=== PATIENT | male | born 1960 | race Caucasian/White ===

== ENCOUNTER 2022-08-26 14:03 | Emergency (ER) | payer BC, SELFPAY ==
--- NOTE | 2022-08-26 14:07 | ED.SKABFB ---
HPI - Skin/Abscess/Foreign Bdy General Chief complaint: Skin/Abscess/Foreign Body Stated complaint: Skin Sore Time Seen by Provider: 08/26/22 14:07 Source: patient and RN notes reviewed History of Present Illness HPI narrative: Patient is a 62-year-old male who presents to urgent care with complaints of a sore to the top of the left hand. Patient states that his next Margarita with her fingernail approximately 2 weeks or so ago and it has never healed. Patient states he does have some scant drainage. States he has been using Neosporin and topical ointments. Denies any fevers, nausea or vomiting. Denies any history of staph infection but does have the concern. No other acute complaints. No acute distress noted. Patient aware of the plan of care. Some parts of this dictation were generated by voice recognition software and may contain typographical and/or grammatical inaccuracies. Related Data Allergies Allergy/AdvReac Type Severity Reaction Status Date / Time allopurinol Allergy Intermediate swelling Verified 11/13/19 09:00 of eyelids aspirin Allergy Intermediate Angioedem Verified 11/13/19 08:59 a indomethacin Allergy Intermediate swelling Verified 11/13/19 09:01 of tongue Review of Systems Review of Systems: CONSTITUTIONAL: Denies fever, chills, or sweats. EYES: Denies visual changes, redness, or discharge. ENT: Denies rhinorrhea, congestion, sore throat, or otalgia. CARDIOVASCULAR: Denies chest pain, palpitations, or edema. RESPIRATORY: Denies cough or dyspnea. GASTROINTESTINAL: Denies abdominal pain, nausea, vomiting, or diarrhea. GENITOURINARY: Denies dysuria or hematuria. SKIN: Reports of a nonhealing wound to the top of the left hand MUSCULOSKELETAL: Denies back pain, joint pain, or myalgia. NEUROLOGIC: Denies headache, numbness, or weakness. All other systems reviewed are negative, except as documented in HPI. [facility] Past Medical History Medical History (Updated 08/26/22 @ 14:27 by DARLING Lr) Acute bronchitis Allergic asthma BMI 31.0-31.9,adult Chronic kidney disease (CKD) stage G3a/A1, moderately decreased glomerular filtration rate (GFR) between 45-59 mL/min/1.73 square meter and albuminuria creatinine ratio less than 30 mg/g BUN 16, creatinine 1.49 with GFR 50 on 11/24/2021. BUN 16, creatinine 1.36, GFR 59 on 06/22/2022 Colon cancer screening Cologuard screening negative on 07/15/2020. Recheck in 3 years Encounter for wellness examination Gout right great toe starting at age 33. Uric acid 5.2 on 06/10/2020 . Uric acid 5.3 on 11/24/2021. uric acid 5.3 on 06/22/2022. Hyperlipidemia starting 2011. Total cholesterol 160, triglycerides 86, HDL 46, LDL 96 on 06/10/2020 . Total cholesterol 172, triglycerides 110, HDL 49, LDL 102 on 11/24/2021. Total cholesterol 177, HDL 43, triglycerides 125, LDL 110 on 06/22/2022. Hypothyroidism 2017. TSH 1.92 on 06/10/2020 . TSH 4.14 with free T4 1.4 on 11/24/2021. TSH 3.72, free T4 1.5 on 06/22/2022 Neoplasm of skin Obesity (BMI 30.0-34.9) Prostate cancer screening PSA 1.2 on 06/10/2020. PSA 1.54 on 11/24/2021. Rupture of biceps tendon, traumatic (~04/2021) Seasonal allergic rhinitis Family History Family History (Updated 06/18/19 @ 08:25 by Radha Ma MA) Mother Thyroid disease Hyperlipidemia Father COPD (chronic obstructive pulmonary disease) Grandparent Diabetes mellitus Grandparent Colon cancer Grandparent Autoimmune disease Grandparent Rheumatoid arthritis Sibling Hypertension Aortic aneurysm Social History Social History (Updated 06/24/22 @ 08:06 by Radha Ma MA) Smoking status: Never smoker Second hand tobacco smoke exposure: No Alcohol intake: current Drinks per week: 2 Alcohol use details: Scotch on the weekends only Substance use: never Substance use type: does not use Current Housing: Decline to Answer C
[2022-08-26 14:10] VITALS: BP 145/95; PULSE 64; RESP 16; TEMP 36.6; O2SAT 98
== END 2022-08-26 14:27 | disposition home or self-care (01) ==
PROVIDERS: Emergency Provider Nurse Practitioner Family; PCP Family Medicine
DX: L02.512 Cutaneous abscess of left hand (principal); N18.31 Chronic kidney disease, stage 3a; E78.5 Hyperlipidemia, unspecified
CPT/HCPCS: 99213; G0463

== ENCOUNTER → 2023-06-30 09:02 | Outpatient (CLI) | payer BC, SELFPAY ==
--- NOTE | ~2023-06-30 | XR_ITS ---
Clinical Indication: Secondary polycythemia PA and lateral views of the chest: Comparison: None Findings: The lungs are clear, without evidence of focal consolidation or pleural effusion. Cardiome diastinal silhouette is within normal limits. Bones and soft tissues are unremarkable. Impression: Normal chest. Reviewed, dictated and finalized at [facility]. [employer]EST[employer] Impression: Normal chest.
== END ==
PROVIDERS: PCP Family Medicine; Visit Provider Family Medicine
DX: D75.1 Secondary polycythemia (principal)
CPT/HCPCS: 71046

== ENCOUNTER 2023-07-27 08:14 | Outpatient (CLI) | payer BC, SELFPAY ==
--- NOTE | 2023-07-27 16:53 | WPDPFTINT ---
PFT Procedure Performed PFT Procedure Performed Spirometry with Pre/Post Bronchodilator Plethysmography (Lung Vol) Diffusing Cap (DLCO) Flow Vol Loop PFT Interpretation This is a pulmonary function test with pre and post-bronchodilator spirometry, plethysmography and diffusing capacity. The test was performed and results interpreted in accordance with the 2019 and 2005 ATS/ERS Task Force guidelines respectively using the Global Lung Function Initiative-2012 reference equations. Patient demonstrated good effort and cooperation. Reproducibility criteria were met. The quality of the pre bronchodilator spirometry maneuver was Grade A and post bronchodilator spirometry maneuver was Grade A. Findings: Spirometry: The contour the inspiratory and expiratory flow tracing are normal. The pre bronchodilator FVC is 4.53 L, 87% predicted. The pre bronchodilator FEV1 is 3.22 L, 82% predicted. The pre bronchodilator FEV1: FVC ratio is 71%. The post bronchodilator FVC is 4.63 L, representing a 2% increase. The post bronchodilator FEV1 is 3.46 L, representing a 7% increase. The post bronchodilator FEV1: FVC ratio is 75%. Plethysmography: The total lung capacity is 9.21 L, 118% predicted. Functional residual capacity is 4.38 L, 106% predicted. The residual volume is 3.56 L, 141% predicted. Diffusing capacity: The diffusing capacity unadjusted for hemoglobin and carboxyhemoglobin is 31.5, 107% predicted. The diffusing capacity adjusted for alveolar volume is 4.69, 119% predicted. Impression: The spirometry is normal without evidence of an obstructive abnormality. There is no significant improvement after inhaling a single dose of albuterol. The total lung capacity and functional residual capacity are normal with an increased residual volume. This is an abnormal but nonspecific lung volume pattern. The diffusing capacity is normal. There are no prior studies for comparison
== END 2023-07-27 08:15 | disposition home or self-care (01) ==
PROVIDERS: PCP Family Medicine; Visit Provider Family Medicine
DX: R91.8 Other nonspecific abnormal finding of lung field (principal); J45.909 Unspecified asthma, uncomplicated
CPT/HCPCS: 94060; 94726; 94729

== ENCOUNTER 2024-11-04 18:04 | Emergency (ER) | payer BC, SELFPAY ==
--- OUTSIDE RECORDS SUMMARY | 2024-11-04 18:06 | XMS_ITS | Clinical Summary ---
Author Organization [address] Address [address] [place] [address] Care Team Providers Care Design Lead Name Role Phone Castillo Newton MD Primary Care Provider [phone] Allergies Active Allergy Reactions Criticality Noted Date Comments Aspirin Swelling Medium 06/29/2021 Medications albuterol HFA (PROVENTIL HFA,VENTOLIN HFA,PROAIR HFA) 90 mcg/actuation inhaler INHALE 2 PUFFS BY MOUTH EVERY 4 HOURS NEEDED FOR SHORTNESS OF BREATH OR WHEEZING 1 Active atorvastatin (LIPITOR) 10 mg tablet Take 10 mg by mouth daily 1 Active celecoxib (CeleBREX) 200 mg capsule TAKE 1 CAPSULE BY MOUTH DAILY NEEDED FOR PAIN 1 Active febuxostat (ULORIC) 40 mg tablet Take 40 mg by mouth daily 1 Active fluticasone propionate (FLONASE) 50 mcg/actuation nasal spray SHAKE LIQUID AND USE 1 SPRAY IN EACH NOSTRIL TWICE DAILY 1 Active levothyroxine (SYNTHROID) 75 mcg tablet Take 75 mcg by mouth daily 1 Active Xiidra 5 % dropperette 1 Active Active Problems No known active problems Medical History Medical History Date Comments Hypercholesteremia Gout Family History Medical History Relation Name Comments Hypertension Mother Relation Name Status Comments Mother Social History Tobacco Use Types Packs/Day Years Used Date Smoking Tobacco: Never Smokeless Tobacco: Never Personal Safety Answer Date Recorded Getting School Help Needed Not on file 10/28 Sex and Gender Information Value Date Recorded Sex Assigned at Not on file Legal 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 Gender Identity Not on file Sexual Orientation Not on file Obstetrics History Last Filed Vital Signs Vital Sign Reading Time Taken Comments Blood Pressure 175/97 06/29/2021 12:01 PM STOCKROOM ASSOCIATE Pulse 59 06/29/2021 12:01 PM STOCKROOM ASSOCIATE Temperature - - Respiratory Rate - - Oxygen Saturation - - Inhaled Oxygen Concentration - - Weight 111.9 kg (246 lb 9.6 oz) 021 12:01 PM STOCKROOM ASSOCIATE Height 188 cm (6' 2 ) 06/29/2021 12:01 PM STOCKROOM ASSOCIATE Body Mass Index 31.66 06/29/2021 12:01 PM STOCKROOM ASSOCIATE Plan of Treatment Health Maintenance Due Date Last Done Comments Colon Cancer Screening-Colonoscopy 1959 Depression Screening 1959 Fall Risk Assessment 1959 Hepatitis C Screening 1959 Prostate Cancer Screening-PSA 1959 DTaP/Tdap/Td Vaccine (1 - Tdap) 1970 Hepatitis B Screening 1977 Pneumococcal vaccine 65+ (1 of 1 - PCV) 2009 Zoster Vaccine (2 of 2) 04/06/2021 02/09/2021 Covid-19 Vaccine (3 - season) 2024, 10/16/2020 Influenza Vaccine (#1) 2024 Abdominal Aortic Aneurysm (AAA) Screen 2024 Well Visit 65+ 2024 Insurance [facility] Care Teams Design Lead Relationship Specialty Start Date End Date Castillo Newton MD [address] [address] PCP - General Family Medicine 06/29/21
--- OUTSIDE RECORDS SUMMARY | 2024-11-04 18:06 | XMS_ITS | Continuity of Care Document ---
Author Organization [facility] Address [address] [place] [address] Phone Care Team Providers Care Electronic Equipment Installer Name Role Phone Briones OD, Mingo Unavailable Unavailable Advance Directives Directive Yes / No Effective Date File Name No Information Encounters Encounter Description Practice Location Reason(s) For Visit Diagnoses Date Provider Providers Copied on Encounter [facility], [address], [place], [place], [id number], [place] tel:[phone] [facility] No Information Jul- 1-199 9 Briones OD Mingo. [address] , [address], [place], [address], [place]. tel:[phone] Family History Family Member Type Diagnosis Age At Onset No Information Payers Payer name Insurance type Covered green party ID Authoriza tion(s) No Information Social History Type Description Quantity Date Captured Comments Sex Male Smoking Status No Information Chief Complaint And Reason For Visit No Information Reason For Referral Reason For Referral No Information History Of Present Illness Encounter Date Complaint History Of Prese nt Illness No Information Functional Status Date Functional Assessmen t No Information Instructions Date Instruction Additional Infor mation No Information Assessments Type Assessment Date No Information Patient Care Teams Name Effective Dates (start - stop) Status Members No Information
--- OUTSIDE RECORDS SUMMARY | 2024-11-04 18:06 | XMS_ITS | Referral Summary ---
Author Organization [address] Address [address] [place] [address] Care Team Providers Care Lockstitch Waistline Joiner Name Role Phone Castillo Newton MD Primary Care Provider [phone] Allergies Active Allergy Reactions Criticality Noted Date [...] Active Active Problems No known active problems Social History Tobacco Use Types Packs/Day Years Used Date Smoking Tobacco: Never Smokeless Tobacco: Never Personal Safety Answer Date Recorded Getting School Help Needed Not on file 10/28 Sex and Gender Information Value Date Recorded Sex Assigned at Not on file Legal Sex Male 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 Gender Identity Not on file Sexual Orientation Not on file Last Filed Vital Signs Vital Sign Reading Time Taken Comments Blood Pressure 175/97 06/29/2021 12:01 PM WOMEN'S GARMENT FITTER Pulse 59 06/29/2021 12:01 PM WOMEN'S GARMENT FITTER Temperature - - Respiratory Rate - - Oxygen Saturation - - Inhaled Oxygen Concentration - - Weight 111.9 kg (246 lb 9.6 oz) 021 12:01 PM WOMEN'S GARMENT FITTER Height 188 cm (6' 2 ) 06/29/2021 12:01 PM WOMEN'S GARMENT FITTER Body Mass Index 31.66 06/29/2021 12:01 PM WOMEN'S GARMENT FITTER Plan of Treatment Not on file Insurance [facility] Care Teams Lockstitch Waistline Joiner Relationship Specialty Start Date End Date Castillo Newton MD [address] [address] PCP - General Family Medicine 06/29/21
[2024-11-04 18:08] VITALS: BP 150/82; PULSE 90; RESP 20; TEMP 37.1; O2SAT 96
--- OUTSIDE RECORDS SUMMARY | 2024-11-04 18:08 | XMS_ITS | Continuity of Care Document ---
Author Organization [facility] Address [address] [place] [address] Phone Care Team Providers Care Narrow Gauge Engineer Name Role Phone Briones OD, Mingo Unavailable Unavailable Advance Directives Directive Yes / No Effective Date File Name No Information Encounters Encounter Description Practice Location Reason(s) For Visit Diagnoses Date Provider Providers Copied on Encounter [facility], [address], [place], [place], [id number], [place] tel:[phone] [facility] No Information Jul- 1-199 9 Briones OD Mingo. [address] , [address], [place], [address], [place]. tel:[phone] Family History Family Member Type Diagnosis Age At Onset No Information Payers Payer name Insurance type Covered libertarian ID Authoriza tion(s) No Information Social History [...]
--- NOTE | 2024-11-04 18:34 | ED_ITS ---
HPI - General Adult General Chief complaint: Upper Respiratory Infection Stated complaint: fever/congestion Source: patient Mode of arrival: ambulatory Limitations: no limitations History of Present Illness HPI narrative: Patient presents for evaluation of sick symptoms for last 3 days. Symptoms include fever, cough, nausea, body aches, wheezing and mild SOB. He denies any chills, vomiting, diarrhea. He has been taking Mucinex DM and Tylenol for symptoms. He does not smoke. He states several individuals at work have recently been sick with influenza and pneumonia. He has also been using an inhaler which seems to help. Related Data Allergies Allergy/AdvReac Type Severity Reaction Status Date / Time allopurinol Allergy Intermediate swelling Verified 11/04/24 18:17 of eyelids aspirin Allergy Intermediate Angioedem Verified 11/04/24 18:17 a indomethacin Allergy Intermediate swelling Verified 11/04/24 18:17 of tongue Review of Systems Review of Systems: CONSTITUTIONAL:Reports fever. Denies chills, or sweats. EYES: Denies visual changes, redness, or discharge. ENT: Reports sinus congestion and rhinorrhea. Denies sore throat and otalgia CARDIOVASCULAR: Denies chest pain, palpitations, or edema. RESPIRATORY: Reports cough, wheezing and mild SOB GASTROINTESTINAL: Denies abdominal pain, nausea, vomiting, or diarrhea. GENITOURINARY: Denies dysuria or hematuria. SKIN: Denies rash or itching. MUSCULOSKELETAL: Reports generalized body aches NEUROLOGIC: Denies headache, numbness, dizziness, or weakness. PSYCHIATRIC: Denies anxiety or depression. [facility] Past Medical History Medical History (Updated 11/04/24 @ 18:30 by Sergio Orellana, [facility]) BMI 30.0-30.9,adult Polycythemia (07/01/17) hemoglobin 17.6 on 07/01/2017. Hemoglobin 17.4 on 06/16/2023. Chest x-ray on 06/30/2023 was normal. hemoglobin 17.4 on 07/18/2024. Chronic kidney disease (CKD) stage G3a/A1, moderately decreased glomerular filtration rate (GFR) between 45-59 mL/min/1.73 square meter and albuminuria creatinine ratio less than 30 mg/g BUN 16, creatinine 1.49 with GFR 50 on 11/24/2021. BUN 16, creatinine 1.36, GFR 59 on 06/22/2022.BUN 18, creatinine 1.32 with GFR 61 on 06/16/2023. BUN 18, creatinine 1.28 with GFR 62 on 07/18/2024. Obesity (BMI 30.0-34.9) Acute bronchitis Seasonal allergic rhinitis Allergic asthma PFT on 07/27/2023 revealed no significant obstructive defect. Increased residual lung volume. Rupture of biceps tendon, traumatic (~04/2021) Neoplasm of skin BMI 31.0-31.9,adult Encounter for wellness examination Colon cancer screening Cologuard screening negative on 07/15/2020. Recheck in 3 years Prostate cancer screening PSA 1.2 on 06/10/2020. PSA 1.54 on 11/24/2021. PSA 2.41 on 06/16/2023. PSA 2.23 on 07/18/2024. Hypothyroidism 2017. TSH 1.92 on 06/10/2020 . TSH 4.14 with free T4 1.4 on 11/24/2021. TSH 3.72, free T4 1.5 on 06/22/2022. TSH 3.72, free T4 1.2, T3 total 107 on 06/16/2023. TSH 3.75 with free T4 at 1.2 on 07/18/2024. Hyperlipidemia starting 2011. Total cholesterol 160, triglycerides 86, HDL 46, LDL 96 on 06/10/2020 . Total cholesterol 172, triglycerides 110, HDL 49, LDL 102 on 11/24/2021. Total cholesterol 177, HDL 43, triglycerides 125, LDL 110 on 06/22/2022. Total cholesterol 219, triglycerides 103, HDL 44, LDL 153 with ratio 5.0 on 06/16/2023. Cholesterol 217, HDL 47, triglycerides 105, LDL 148 with ratio 4.6 on 07/18/2024. Gout right great toe starting at age 33. Uric acid 5.2 on 06/10/2020 . Uric acid 5.3 on 11/24/2021. uric acid 5.3 on 06/22/2022. Uric acid 5.1 on 06/16/2023. Uric acid at 5.5 on 07/18/2024. Surgical History Surgical History No pertinent past surgical history Family History Family History Mother Thyroid disease Hyperlipidemia Father COPD (chronic obstructive pulmonary disease) Grandparent Diabetes mellitus Grandparent Colon cancer Grandparent Autoimmune disease Grandparent Rheumatoid arthritis Sibling Hypertension Aortic aneurysm Social History Social History Smoking status: Never smoker Second hand tobacco smoke exposure: No Alcohol intake: current Drinks per week: 2 Alcohol use details: Scotch on the weekends only Substance use: never Substance use type: does not use Current Housing: Decline to Answer Concerned About Future Housing: Decline to Answer Difficulty Paying Gas/Electric Bills: Decline to Answer Difficulty Paying for Meds: Decline to Answer Currently Unemployed: Decline to Answer Difficulty w/ Childcare or Family Care: Decline to Answer Exam Narrative: GENERAL: Well-appearing, well-nourished, and in no acute distress. HEAD: Normocephalic, atraumatic. EYES: PERRLA and EOMI. ENT: Nares clear, no rhinorrhea or epistaxis. Mucous membranes moist. Oropharynx without tonsillar hypertrophy exudate or other lesions. Bilateral TMs pearly elena nonbulging NECK: Supple. No adenopathy or masses. No carotid bruits or JVD CHEST: Clear to auscultation. No respiratory distress. No wheezes rales or rhonchi HEART: Regular rate and rhythm. No murmur heard. Normal peripheral pulses. ABDOMEN: Soft, nontender, nondistended, normal active bowel sounds. EXTREMITIES: Normal range of motion. No edema. SKIN: Warm, dry, no rash. NEURO: No focal deficits. Alert and oriented x3. PSYCH: Normal mood and affect. Course Course Emergency Course: This is a 64-year-old male who presented for evaluation of sick symptoms. Influenza A positive. Influenza B and COVID negative. We discussed risks versus benefits of Tamiflu and opted to proceed with treatment. He declined sc ript for steroids. He will continue with his inhaler, mucinex DM and tylenol. He will follow-up with his primary care provider. He will go to the ER for worsening symptoms. Pt in agreement with plan of care. Level of Care: Express Care Visit Vital Signs Vital signs: Vital Signs Temperature 37.1 C 11/04/24 18:08 Pulse Rate 90 03/23/25 18:08 Respiratory Rate 20 11/04/24 18:08 Blood Pressure 150/82 H 11/04/24 18:08 Pulse Oximetry 96 11/04/24 18:08 Oxygen Delivery Room Air 11/04/24 18:08 Temperature 37.1 C 11/04/24 18:08 Pulse Rate 90 11/04/24 18:08 Respiratory Rate 20 11/04/24 18:08 Blood Pressure 150/82 H 11/04/24 18:08 Pulse Oximetry 96 11/04/24 18:08 Oxygen Delivery Room Air 11/04/24 18:08 Medical Decision Making Vital Signs Vital Signs: Vital Signs Temperature 37.1 C 11/04/24 18:08 Pulse Rate 90 11/04/24 18:08 Respiratory Rate 20 11/04/24 18:08 Blood Pressure 150/82 H 11/04/24 18:08 Pulse Oximetry 96 11/04/24 18:08 Oxygen Delivery Room Air 11/04/24 18:08 Temperature 37.1 C 11/04/24 18:08 Pulse Rate 90 11/04/24 18:08 Respiratory Rate 20 11/04/24 18:08 Blood Pressure 150/82 H 11/04/24 18:08 Pulse Oximetry 96 11/04/24 18:08 Oxygen Delivery Room Air 11/04/24 18:08 Lab Data Labs: Lab Results 11/04/24 Range/Units 18:30 POC Influenza A Ag Positive (Negative) POC Influenza B Ag Negative (Negative) POC SARS CoV-2 Ag Negative (Negative) Discharge Plan Discharge Clinical Impression: Influenza A Patient Disposition: Home, Self-Care Condition: Stable Instructions: Antibiotic Form, Influenza (DC) Patient Language: Monegasque Prescriptions: New oseltamivir [Tamiflu] 75 mg capsule 75 mg PO Q12H 5 Days Qty: 10 0RF No Action levothyroxine 75 mcg tablet 75 mcg PO DAILY Qty: 90 3RF febuxostat [Uloric] 40 mg tablet 40 mg PO DAILY Qty: 90 3RF Follow-up/Referrals: Castillo Newton MD [Primary Care Provider] - Time of Disposition: 18:30
[2024-11-04 18:40] LABS: EDCOVIDSCREEN Negative (Negative); EDINFLUASCREEN Positive (Negative); EDINFLUBSCREEN Negative (Negative)
== END 2024-11-04 18:40 | disposition home or self-care (01) ==
PROVIDERS: Emergency Provider Nurse Practitioner; PCP Family Medicine
DX: J10.1 Influenza due to other identified influenza virus with other respiratory manifestations (principal); Z20.822 Contact with and (suspected) exposure to COVID-19; N18.31 Chronic kidney disease, stage 3a; J45.909 Unspecified asthma, uncomplicated; E03.9 Hypothyroidism, unspecified; E78.5 Hyperlipidemia, unspecified; M10.9 Gout, unspecified; E66.9 Obesity, unspecified; Z68.30 Body mass index [BMI] 30.0-30.9, adult; Z85.828 Personal history of other malignant neoplasm of skin
CPT/HCPCS: 87426; 87804; 99213; G0463